=== PATIENT | male | born 1960 | race Caucasian/White ===

== ENCOUNTER 2016-12-19 22:37 | Emergency (ER) | payer OTHER, MEDICARE ==
--- NOTE | ~2016-12-19 | ER ---
PATIENT'S NAME: RAY WILLIS [facility] AGE: 56 Y [address] ROOM: [place] [address] LOCATION: [facility] ADMIT DATE: 12/19/2016 ER/Outpatient Report DISCHARGE DATE: 12/20/2016 FAMILY PHYSICIAN: PHYSICIAN, NO ATTENDING PHYSICIAN: Roselyn Maria Time of Arrival: 2234 hours. Time of Evaluation: 2245 hours. HISTORY OF PRESENT ILLNESS: This is a 56-year-old male with a history of chronic bronchitis COPD. He is in with complaint of productive cough and shortness of breath for the past 4 or 5 days. He saw his doctor yesterday. He was given prescription for antibiotics, however, he is unable to get that filled. PAST MEDICAL HISTORY: Significant for asthma and chronic bronchitis. CURRENT MEDICATIONS: See list. REVIEW OF SYSTEMS: Otherwise negative. SOCIAL HISTORY: He is a 1-pack per day smoker. PHYSICAL EXAMINATION: GENERAL: Alert, cooperative male, in no acute distress. VITAL SIGNS: Stable. SKIN: Warm and dry. Color is normal. HEENT: Head, ears, eyes, nose, and throat revealed severe periodontal disease and diffuse caries, otherwise normal. NECK: Supple. HEART: Had a regular rate and rhythm without murmur. LUNGS: He had scattered inspiratory and expiratory wheezing with coarse rhonchi audible bilaterally. ABDOMEN: Soft and nontender. EXTREMITIES: Normal. NEUROLOGIC: Normal. DIAGNOSTIC STUDIES: Chest x-ray was negative. CBC reveals slightly elevated white blood cell count. EMERGENCY DEPARTMENT COURSE: PATIENT'S NAME: RAY WILLIS [facility] AGE: 56 Y [address] ROOM: [place] [address] LOCATION: [facility] ADMIT DATE: 12/19/2016 ER/Outpatient Report DISCHARGE DATE: 12/20/2016 FAMILY PHYSICIAN: PHYSICIAN, NO ATTENDING PHYSICIAN: Roselyn Maria He was given albuterol and Atrovent nebulized treatment followed by an albuterol breathing treatment with improvement. ASSESSMENT: Bronchitis. PLAN: Z-Martín take as directed and prednisone 20 mg 3 times a day. Follow up with his regular doctor as needed. ROSELYN MARIA MD JDB/modl /[id number] d: 12/20/16 0647 t: 12/21/16 1754, OUTPATIENT REPORT
[2016-12-19 23:09] LABS: BASOPHIL # 0.1 K/uL (0.0-0.2); BASOPHIL % 0.6 %; EOSINOPHIL # 0.2 K/uL (0.0-0.5); HEMATOCRIT 41.4 % (37.0-53.0); HEMOGLOBIN 14.2 g/dL (12.0-17.0); IMMATURE GRANULOCYTE % 0.3 %; LYMPHOCYTE # 1.9 K/uL (0.8-4.0); LYMPHOCYTE % 15.8 %; MCH 31.6 pg (27.0-34.0); MCHC 34.3 gm/dL (32.0-36.5); MONOCYTE # 1.1 K/uL (0.0-1.0); MONOCYTE % 8.9 %; MPV 8.9 fl (9.4-12.4); NEUTROPHIL # (ANC) 8.7 K/uL (1.4-9.0); NEUTROPHIL % 72.4 %; NRBC % 0 /100WBC (0-0.00); PLATELET COUNT 278 K/uL (150-450); RDW-CV 14.5 % (11.9-14.6)
[2016-12-19 23:28] LABS: ALBUMIN 3.6 gm/dL (3.5-5.0); ALK PHOS 73 IU/L (33-138); ALT 20 IU/L (12-78); ANION GAP 11.4 (10.0-19.0); AST 13 IU/L (10-40); BLOOD UREA NITROGEN 15 mg/dL (6-24); CALCIUM 8.9 mg/dL (8.5-10.5); CHLORIDE 108 mMol/L (96-110); CO2 25 mMol/L (22-32); POTASSIUM 3.4 mMol/L (3.7-5.1); SODIUM 141 mMol/L (135-145); TOTAL BILIRUBIN 0.2 mg/dL (0.0-1.5)
== END 2016-12-20 00:03 | disposition disaster alternative care site (69) ==
LOC: GMED 22:37
PROVIDERS: Emergency Medicine
DX: J44.0 Chronic obstructive pulmonary disease with (acute) lower respiratory infection (principal); J20.9 Acute bronchitis, unspecified; F17.210 Nicotine dependence, cigarettes, uncomplicated; Z88.0 Allergy status to penicillin; Z79.899 Other long term (current) drug therapy
CPT/HCPCS: J2930